=== PATIENT | female | born 1990 | race Caucasian/White ===

== ENCOUNTER 2019-09-20 12:46 | Emergency (ER) | payer OTHER ==
[~2019-09-20] VITALS: Ht 162.6 cm; Wt 74.8 kg
[2019-09-20] MEDS ORDERED: NOHOMEMEDICATIONS (13:18)
[2019-09-20 14:05] LABS: ABSOLUTE NEUTROPHILS 11.4 thou/uL (1.4-8.2); BASOPHILS 0.1 % (0.0-2.0); HEMATOCRIT 36.4 % (37.0-47.0); HEMOGLOBIN 11.8 gm/dL (12.0-15.0); LYMPHOCYTES 8.3 % (24.0-44.0); MCH 29.6 pg (26.0-34.0); MCHC 32.4 g/dL (28.0-37.0); MCV 91.1 fL (80.0-100.0); MONOCYTES 6.9 % (1.0-8.0); PLATELET COUNT 301 thou/uL (150-400); POLYS 84.7 % (36.0-66.0); RDW 13.4 % (10.5-14.5); WBC 13.4 thou/uL (4.0-11.0)
[2019-09-20 14:07] LABS: CREATININE 0.9 mg/dL (0.6-1.0); POTASSIUM 3.7 mmol/L (3.5-5.1)
[2019-09-20 14:16] LABS: CALCIUM 9.1 mg/dL (8.5-10.1)
[2019-09-20] MEDS ORDERED: DOXYCYCLINE 10100 M2 PO (15:12)
[2019-09-20] MEDS ORDERED: PROAIR HFA8.5 GM INH (15:13)
[2019-09-20 15:33] VITALS: BP 110/68
--- NOTE | 2019-09-20 17:28 | EKG ---
[address] [place] [address] ELECTROCARDIOGRAM REPORT Name: KEARA KELLEY Room #: [facility] Nagi#: [id number] Admission: 09/20/19 Attend Phys: Discharge: 09/20/19 Date of : [birth year] Report #: [id number] THIS REPORT FOR: //name// [facility] ED Test Date: 2019-09-20 Test Time: 12:50:30 Pat Name: KEARA KELLEY Department: Room: Gender: F Photography [employer] : 1990 Requested By: Taylor Walker Order Number: [id number] MD: Aime Singleton Measurements Intervals [place] Rate: 116 P: 66 KS: 136 QRS: 87 QRSD: 73 T: -11 QT: 304 QTc: 423 Interpretive Statements Sinus tachycardia Consider right atrial enlargement Borderline T abnormalities, inferior leads No previous ECG available for comparison Electronically Signed On 09-20-2019 17:27:42 [employer] by Aime Singleton [email or web address] <ELECTRONICALLY SIGNED> By: Aime Singleton MD 09/20/19 1727 1250 1250 MD KAUSHIK Bell
== END 2019-09-20 15:53 | disposition home or self-care (01) ==
LOC: ER 12:46
PROVIDERS: Nurse Practitioner
DX: J18.9 Pneumonia, unspecified organism (principal)